=== PATIENT | male | born 1985 | race Caucasian/White ===

== ENCOUNTER 2016-08-17 16:32 | Emergency (ER) | payer BC ==
[2016-08-17 16:44] VITALS: O2SAT 94
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
[2016-08-17 17:44] VITALS: BP 97/60; PULSE 60; RESP 15; TEMP 98.8
== END 2016-08-17 17:43 | disposition home or self-care (01) ==
DX: K12.2 Cellulitis and abscess of mouth (principal)

== ENCOUNTER 2017-03-03 19:59 | Emergency (ER) | payer OTHER ==
[2017-03-03 20:08] VITALS: BP 110/67; PULSE 84; O2SAT 96
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
[2017-03-03 20:56] LABS: BACTERIA 4+ /hpf (NONE SEEN); MUCUS TRACE /lpf (NONE-1+); WBC,URINE 50-182 /hpf (0-3)
[2017-03-03 20:57] LABS: COLOR YELLOW; LEUKOCYTE ESTERASE,URINE 3+ (NEGATIVE); NITRITE,URINE POSITIVE (NEGATIVE)
[2017-03-03] MEDS ORDERED: SULFAMETHOX/TMP 800/160 MG 1 TAB PO ONE (21:05)
[2017-03-03 21:33] VITALS: RESP 20; TEMP 98.2
== END 2017-03-03 21:33 | disposition home or self-care (01) ==
DX: N30.01 Acute cystitis with hematuria (principal); B96.20 Unspecified Escherichia coli [E. coli] as the cause of diseases classified elsewhere